=== PATIENT | female | born 1995 | race Caucasian/White ===

== ENCOUNTER 2018-05-23 19:55 | Emergency (ER) | payer SELFPAY ==
[~2018-05-23] VITALS: Ht 152.4 cm; Wt 81.8 kg
[2018-05-23 20:03] VITALS: BP 138/85; TEMP 98.8
[2018-05-23] MEDS ORDERED: AMOXICILLIN 50500 MG PO (20:56)
[2018-05-23 21:22] VITALS: PULSE 80
== END 2018-05-23 21:22 | disposition home or self-care (01) ==
LOC: COL.ER 19:55
DX: H92.02 Otalgia, left ear (principal)